=== PATIENT | male | born 1960 | race Caucasian/White ===

== ENCOUNTER → 2021-06-16 | Outpatient (CLI) | payer BC ==
--- NOTE | 2021-06-17 07:50 | CT ---
EXAMINATION TYPE: CT angio chest DATE OF EXAM: 06/16/2021 COMPARISON: NONE HISTORY: thoracic aneurysm w/o rupture CT DLP: 1350.3 mGycm. Automated Exposure Control for Dose Reduction was Utilized. CONTRAST: CTA scan of the thorax is performed without and with IV Contrast, patient injected with 80 mL of Isov ue 370, aneurysm protocol. 3D reconstructed images are created on an independent workstation and rev iewed. FINDINGS: LUNGS: Slightly elevated left hemidiaphragm. Focal irregular area right upper to midlung laterally fa vors postsurgical and treatment change, correlate clinically with linear extension along posterior as pect right upper lobe coronal image 96. Differential would include chronic scarring from old infectio us or inflammatory process. Remainder of both lungs otherwise clear. No pleural effusion or pneumotho rax seen. MEDIASTINUM: Noncontrast images show no suspicious hyperdense material to suggest intramural hematoma . Satisfactory enhancement of the central pulmonary arteries. Aneurysm of the aorta measuring up to 4 .7 cm at root sagittal image 73. Aorta measures up to 4.7 cm at level of main pulmonary artery axial image 25. Normal three-vessel origin is seen, there is slight tortuous course without aneurysmal exte nsion into the arch or descending aorta. There are some prominent but scattered subcentimeter thoraci c lymph nodes in the bilateral hilar region and mediastinum. No cardiomegaly or pericardial effusio n is seen. Coronary artery calcification is present. OTHER: Moderate multilevel spurring in the thoracic spine. Disc space narrowing with sclerosis left T 5-T6 level. IMPRESSION: Confirmation of 4.7 cm ascending aortic aneurysm.
== END | disposition home or self-care (01) ==
LOC: RADCTMAIN 15:36
PROVIDERS: ATTEND Thoracic Surgery (Cardiothoracic Vascular Surgery)
DX: I71.2 Thoracic aortic aneurysm, without rupture (principal)
CPT/HCPCS: 82565; 84520; 71275; 36415; Q9967